=== PATIENT | male | born 1950 | race Asian ===

== ENCOUNTER 2022-05-09 11:14 | Emergency (ER) | payer OTHER ==
[2022-05-09] MEDS ORDERED: BEBTELOVIMAB (EUA) 175 MG/2 ML VIAL IVPUSH ONE (11:36)
[2022-05-09 11:49] VITALS: BP 139/89; PULSE 105; RESP 20; TEMP 98.3; BMI 30.6
== END 2022-05-09 13:42 | disposition home or self-care (01) ==
LOC: JCOVINFU 11:14
DX: U07.1 COVID-19 (principal)
CPT/HCPCS: 99284-25; M0222; Q0222

== ENCOUNTER 2025-03-26 18:54 | Emergency (ER) | payer OTHER ==
[2025-03-26 19:09] VITALS: BP 128/80; PULSE 85; RESP 20; TEMP 98; BMI 27.7
[2025-03-26] MEDS ORDERED: DIPHTH,PERTUSS(ACELL),TET 0.5 ML DISP.SYRIN IM ONE (19:47)
[2025-03-26] MEDS: DIPHTH,PERTUSS(ACELL),TET 0.5 ML DISP.SYRIN IM ONE (19:59)
== END 2025-03-26 20:58 | disposition home or self-care (01) ==
LOC: JER 18:54
PROC: 3E0234Z Introduction of Serum, Toxoid and Vaccine into Muscle, Percutaneous Approach (ICD-10-PCS; principal; 2025-03-26)
DX: S80.211A Abrasion, right knee, initial encounter (principal); S80.212A Abrasion, left knee, initial encounter; S40.811A Abrasion of right upper arm, initial encounter; S40.812A Abrasion of left upper arm, initial encounter; Z23 Encounter for immunization; W18.01XA Striking against sports equipment with subsequent fall, initial encounter; Y92.009 Unspecified place in unspecified non-institutional (private) residence as the place of occurrence of the external cause
CPT/HCPCS: 70450-TC; 72125-TC; 73564-TC-RT-FY; 90471; 90715; 99285-25